=== PATIENT | male | born 1960 | race Two or more races ===

== ENCOUNTER 2017-01-13 08:49 | Emergency (ER) | payer BC, OTHER ==
[2017-01-13 09:00] VITALS: BP 158/90
--- NOTE | 2017-01-13 09:40 | EDM.PDOC ---
ED HPI GENERAL MEDICAL PROBLEM - General Chief Complaint: Back Pain or Injury Stated Complaint: BACK PAIN Time Seen by Provider: 01/13/17 09:01 Source of Information: Reports: Patient, RN Notes Reviewed History Limitations: Reports: No Limitations - History of Present Illness INITIAL COMMENTS - FREE TEXT/NARRATIVE: The patient states that he developed pain to the dorsal aspect of his right foot this past 01/09/2017. He was under the impression that it was a gout flare, although he has never been formally diagnosed with gout. He states that he has been constipated all week, which he associates with a gouty flare. He also developed left flank pain on 01/09/2017, stating that the pain has been worsening since then. He states that it is worse if he moves, but there is pain even if he remains still. He is unable to describe the character of the pain other than "pain". No urinary symptoms, such as dysuria, frequency, or gross hematuria. No prior similar symptoms. The patient denies a back injury. 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 He states that he does have to wash the truck once a week. The patient does not have a PCP, and states that he has never undergone a general physical examination. Left Back Pain Score (Numeric/FACES): 10 - Related Data Allergies Allergy/AdvReac Type Severity Reaction Status Date / Time No Known Allergies Allergy Verified 01/13/17 08:56 Home Meds: Home Meds Orphenadrine [Norflex] 1 tab PO Q12H #10 tab.er 01/13/17 [Rx] Past Medical History Endocrine/Metabolic History: Reports: Obesity/BMI 30+ - Past Surgical History HEENT Surgical History: Reports: Other (See Below) (Right ear surgery x 2) Social & Family History - Tobacco Use Smoking Status *Q: Former Smoker Years of Tobacco use: 29 Packs/Tins Daily: 1 Month Tobacco Last Used: Quit 2002 - Alcohol Use Alcohol Use History: Yes Date/Time of Last Drink Comment: Quit 2002 - Recreational Drug Use Recreational Drug Use: Yes Drug Use in Last 12 Months: No Recreational Drug Type: Reports: Barbituates, Cocaine, Marijuana/Hashish Recreational Drug Last Use: Quit 2002 - Living Situation & Occupation Living situation: Reports: , with Spouse, with Family (Stepdaughter and her 5 children) Occupation: Employed (trailer tank truck driver) ED ROS GENERAL - Review of Systems Review Of Systems: See Below Constitutional: Reports: No Symptoms HEENT: Reports: No Symptoms Respiratory: Reports: No Symptoms Cardiovascular: Reports: No Symptoms Endocrine: Reports: No Symptoms GI/Abdominal: Reports: No Symptoms : Reports: No Symptoms Musculoskeletal: Reports: No Symptoms Skin: Reports: No Symptoms Neurological: Reports: No Symptoms Psychiatric: Reports: No Symptoms Hematologic/Lymphatic: Reports: No Symptoms Immunologic: Reports: No Symptoms ED EXAM,LOWER BACK PAIN/INJURY - Physical Exam Exam: See Below Exam Limited By: No Limitations General Appearance: Alert, WD/WN, No Apparent Distress Eye Exam: Bilateral Eye: Normal Inspection Ears: Normal External Exam, Hearing Grossly Normal Nose: Normal Inspection, No Blood Throat/Mouth: Normal Inspection, Normal Lips, Normal Voice, No Airway Compromise Head: Atraumatic, Normocephalic Neck: Normal Inspection, Full Range of Motion Respiratory/Chest: No Respiratory Distress, Lungs Clear, Normal Breath Sounds, No Accessory Muscle Use Cardiovascular: Normal Peripheral Pulses, Regular Rate, Rhythm, No Gallop, No JVD, No Murmur, No Rub GI/Abdominal: Normal Bowel Sounds, Soft, Non-Tender, No Organomegaly, No Distention, No Abnormal Bruit, No Mass, Other (Obese) (Male) Exam: Deferred Rectal (Males) Exam: Deferred Back Exam: Normal Inspection, Full Range of Motion, Other (The patient is able to flex the spine to approximately 110, and extend the spine to approximately 30. He is able to tilt to both the left and right to approximately 30. He is able to twist the spine both left and right to approximately 30. Unilateral knee bend is normal bilaterally. Straight leg raise is negative to 90 bilaterally.). No: CVA Tenderness (L), CVA Tenderness (R), Decreased Range of Motion, Paraspinal Tenderness, Vertebral Tenderness Extremities: Normal Inspection, Normal Range of Motion, No Pedal Edema, Normal Capillary Refill Neurological: Alert, Normal Gait, No Motor/Sensory Deficits, Oriented x 3 Psychiatric: Normal Affect Skin Exam: Warm, Dry, Intact, Normal Color, No Rash Lymphatic: No Adenopathy Course - Vital Signs Last Recorded V/S: Last Vital Signs Temp 36.9 C 01/13/17 08:57 Pulse 88 01/13/17 08:57 Resp 18 01/13/17 08:57 BP 158/90 H 01/13/17 08:57 Pulse Ox 98 01/13/17 08:57 - Orders/Labs/Meds Labs: Laboratory Tests 01/13/17 Range/Units 09:36 Urine Color Yellow (Yellow) Urine Appearance Clear (Clear) Urine pH 5.5 (5.0-8.0) Ur Specific Posey 1.020 (1.005-1.030) Urine Protein Negative (Negative) Urine Glucose (UA) Negative (Negative) Urine Ketones Negative (Negative) Urine Occult Blood Negative (Negative) Urine Nitrite Negative (Negative) Urine Bilirubin Negative (Negative) Urine Urobilinogen 0.2 (0.2-1.0) Ur Leukocyte Esterase Negative (Negative) Urine RBC Not seen (0-5) /hpf Urine WBC Not seen (0-5) /hpf Ur Epithelial Cells 0-5 (0-5) /hpf Urine Bacteria Not seen (FEW) /hpf Urine Mucus Not seen (FEW) /hpf Meds: Medications Discontinued Medications Generic Name Dose Route Start Last Admin Trade Name Freq PRN Reason Stop Dose Admin Orphenadrine Citrate 100 mg 01/13/17 10:32 Norflex PO 01/13/17 10:33 ONETIME STA - Re-Assessments/Exams Free Text/Narrative Re-Assessment/Exam: 01/13/17 09:46 The patient has remarkable flexibility, and, clinically, there is no suggestion that the patient's symptoms are related to a spinal injury or herniated intervertebral disc. While he does not have CVA tenderness, I will check a urinalysis for blood or UTI. Presuming these are negative, I will treat for a muscle spasm with a muscle relaxant. 01/13/17 10:37 The patient's urinalysis is normal. His back pain is most likely due to a muscle spasm. I have ordered a first dose of Norflex, and will e-prescribe an additional 5 days. I will refer the patient to Dr. Lal for follow-up. Departure - Departure Time of Disposition: 10:37 Disposition: Home, Self-Care 01 Condition: Good Clinical Impression: Muscle spasm of back - Discharge Information Referrals: PCP,Not In Area [Primary Care Provider] - Vanessa Lal [Physician] - Forms: ED Department Discharge Additional Instructions: You were seen in the emergency room for left flank pain since Sunday, 2016. Workup in the ER included a urinalysis, which was normal. You do not have a urinary tract infection, and you do not have a kidney stone. Based on your examination, your back pain is MOST LIKELY due to a muscle spasm. You have been started on the muscle relaxant Norflex. Take one tablet every 12 hours, starting tonight, 01/13/2017, as prescribed. We STRONGLY recommend you follow-up with Dr. Lal in the clinic for a general physical examination. You would also follow-up with Dr. Lal if your back pain does not improve. If any other problems, please do not hesitate to return to the ER.
[2017-01-13] MEDS ORDERED: Orphenadrine 100 MG Tab.ER PO STA (10:32)
== END 2017-01-13 10:57 | disposition home or self-care (01) ==
LOC: JD.ED 08:49
DX: M62.830 Muscle spasm of back (principal); E66.9 Obesity, unspecified; Z87.891 Personal history of nicotine dependence
CPT/HCPCS: 81001; 99284; A9270; 99283

== ENCOUNTER 2017-01-14 07:30 | Emergency (ER) | payer BC, OTHER ==
[2017-01-14 07:49] VITALS: BP 145/88
[2017-01-14] MEDS ORDERED: Acetaminophen/oxyCODONE 325-5 MG Tab PO ONE (08:40)
[2017-01-14] MEDS ORDERED: Ibuprofen 800 MG Tab PO ONE (08:40)
--- NOTE | 2017-01-14 08:44 | EDM.PDOC ---
ED HPI GENERAL MEDICAL PROBLEM - General Chief Complaint: Back Pain or Injury Stated Complaint: BACK PAIN WORSE THAN YESTERDAY Time Seen by Provider: 01/14/17 08:39 Source of Information: Reports: Patient - History of Present Illness INITIAL COMMENTS - FREE TEXT/NARRATIVE: 56-year-old male presents to the ED with severe left mid back pain. 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 States due to the position and having to reach above his head and ENT or jerking tarp with his right hand only he felt a pulling sensation in his left mid back last Sunday, January 10. He had to do the same type of activity for the next 3 days. He states he felt mild pain in his back Sunday but worsened Sunday. He came into the ED yesterday and did receive some Norflex which he did not find helpful. He states he has a little pain if he doesn't move. He cannot take a deep breath. Certain movements just above dropped him to his knees because of the severity of the muscle spasm in his left back. Very painful to cough and to deep breathe at times. No previous back problems. Onset: Sudden Onset Date: 01/10/17 (Gradually has become worse over the last 4-5 days.) Duration: Day(s):, Getting Worse Location: Reports: Back (Left mid back.) Quality: Reports: Ache, Pressure, Sharp, Stabbing (With movement) Severity: Moderate (Describes pain as 8 or 9 with movement at rest it's down to 1 or 2.) Improves with: Reports: Rest Worsens with: Reports: Breathing (And not moving), Other (Coughing), Movement Context: Reports: Activity (It's the nature of what he had to do in the workplace in terms of manually pulling a type across the top of his load on his truck. The poles are bent for the hydraulic components of the vehicle to move the top over his load. He's had to mechanically pole it and had to indicate aggressively on Sunday with one hand i.e. right hand above his head. He believes this is when the problem started and it's gradually worsened. Of course she had to do the same activity for the rest of the week as a truck is not been repaired.), Other. Denies: Exercise, Lifting, Sick Contact, Trauma Associated Symptoms: Reports: No Other Symptoms Treatments BEHAVIORAL ASSISTANT: Reports: Acetaminophen, Other (see below) (Norflex which was prescribed yesterday.) Flank Pain Score (Numeric/FACES): 10 - Related Data Allergies Allergy/AdvReac Type Severity Reaction Status Date / Time No Known Allergies Allergy Verified 01/14/17 07:48 Home Meds: Home Meds Orphenadrine [Norflex] 1 tab PO Q12H #10 tab.er 01/13/17 [Rx] Diclofenac Sodium [Voltaren] 50 mg PO TIDMEALS #30 tab.ec 01/14/17 [Rx] oxyCODONE HCl/Acetaminophen [Percocet 5-325 mg Tablet] 1 - 2 each PO Q4H PRN # 20 tablet 01/14/17 [Rx] Past Medical History Cardiovascular History: Reports: Hypertension Endocrine/Metabolic History: Reports: Obesity/BMI 30+ - Past Surgical History HEENT Surgical History: Reports: Other (See Below) (Right ear surgery x 2) Social & Family History - Tobacco Use Smoking Status *Q: Unknown Ever Smoked Years of Tobacco use: 29 Packs/Tins Daily: 1 Month Tobacco Last Used: Quit 2002 - Recreational Drug Use Recreational Drug Use: Yes Drug Use in Last 12 Months: No Recreational Drug Type: Reports: Barbituates, Cocaine, Marijuana/Hashish Recreational Drug Last Use: Quit 2002 - Living Situation & Occupation Living situation: Reports: , with Spouse, with Family (Stepdaughter and her 5 children) Occupation: Employed ([employer] driver) ED ROS GENERAL - Review of Systems Review Of Systems: See Below Constitutional: Reports: Fatigue. Denies: Fever, Chills, Malaise, Weakness HEENT: Reports: No Symptoms (From not sleeping that well) Respiratory: Reports: Shortness of Breath. Denies: Wheezing, Pleuritic Chest Pain (Can't take a full deep breath because it aggravates the back pain), Cough , Sputum, Hemoptysis Cardiovascular: Reports: Blood Pressure Problem. Denies: Claudication, Dyspnea on Exertion, Edema, Lightheadedness, Orthopnea (Mild hypertension) Endocrine: Denies: No Symptoms GI/Abdominal: Reports: No Symptoms : Reports: No Symptoms Musculoskeletal: Reports: Back Pain (Left mid back pain from between his shoulder blade all the way down to), Muscle Pain ( lumbar spine area.) Skin: Reports: No Symptoms (left mid back ) Neurological: Reports: No Symptoms Psychiatric: Reports: No Symptoms Hematologic/Lymphatic: Reports: No Symptoms ED EXAM, UPPER BACK/NECK PAIN - Physical Exam Exam: See Below Exam Limited By: No Limitations General Appearance: Alert, WD/WN, Moderate Distress (Annual certain movements cause severe pain and muscle spasm left back.) Cardiovascular/Respiratory: Regular Rate, Rhythm, No M/R/G, Normal Peripheral Pulses, Normal Breath Sounds, No Respiratory Distress GI/Abdominal: Normal Bowel Sounds, Soft, Non-Tender, No Organomegaly (Mildly obese), No Distention, No Mass, Other Back Exam: Muscle Spasm (Patient exhibits marked paraspinal muscle spasm on the left side from thoracic 5 to lumbar one on the left side. Particular a maximal point of tenderness over the eighth ninth and 10th rib heads. Any movement causes severe pain. He can forward flex and extend okay but lateral rotation is moderately painful). No: Vertebral Tenderness Extremities: Normal Inspection, Normal Range of Motion, Non-Tender, No Pedal Edema, Normal Capillary Refill, Other Neurologic: No Motor/Sensory Deficits (No evidence of nerve root irritation), Alert, Normal Mood/Affect, Oriented x 3 Skin Exam: Normal Color, Warm/Dry Lymphatic: No Adenopathy Course - Vital Signs Last Recorded V/S: Last Vital Signs Temp 36.9 C 01/14/17 07:46 Pulse 88 01/14/17 07:46 Resp 18 01/14/17 07:46 BP 145/88 H 01/14/17 07:46 Pulse Ox 100 01/14/17 07:46 - Orders/Labs/Meds Orders: Active Orders 24 hr Category Date Time Status Thoracic Spine 2V [CR] Stat Exams 01/14/17 08:40 Taken Meds: Medications Discontinued Medications Generic Name Dose Route Start Last Admin Trade Name Indraq PRN Reason Stop Dose Admin Ibuprofen 800 mg 01/14/17 08:40 01/14/17 08:46 Motrin PO 01/14/17 08:41 800 mg ONETIME ONE Administration Oxycodone/Acetaminophen 2 tab 01/14/17 08:40 01/14/17 08:46 Percocet 325-5 Mg PO 01/14/17 08:41 2 tab ONETIME ONE Administration - Radiology Interpretation Free Text/Narrative:: 56-year-old male with a work-related injury to his left mid back that occurred on January 10. He had to do the same type of procedure in terms of pulling manually his top cover for the top of his semi-trailer due to the mechanical components being bent and broken. This involves yanking on the chart from below with right arm alone causing a tremendous toast force to his back. He has thus severe left paraspinal muscle spasm from for thoracic 56 level to lumbar 18 level on the left side. There is marked tenderness particularly over the rib heads at 8,9 and 10. Plan 2 view of the thoracic spine to be done i.e. AP and lateral. I will give him 2 Percocet 5/3/25 milligram tablets now for pain relief. - Re-Assessments/Exams Free Text/Narrative Re-Assessment/Exam: 01/14/17 09:13 AP and lateral of his thoracic spine is been completed. There does appear to be mild wedge compression fracture at thoracic 7. However this does not appear to be new. Plan will be conservative management with Voltaren 50 mg 3 times daily for 10 days to reduce pain and inflammation. Percocet tabs 5 /3/25 one or 2 every 4-6 hours for pain relief. Patient advised to seek chiropractic manipulation early this next week. Tomorrow will be a holiday however. Note given to excuse him from the work place for at least the rest of this week. He should follow-up with his personal care physician on Sunday next week to see if he is able to return to work. Departure - Departure Time of Disposition: :24 Disposition: Home, Self-Care 01 Condition: Fair Clinical Impression: Acute thoracic myofascial strain Qualifiers: Encounter type: initial encounter Qualified Code(s): S29.019A - Strain of muscle and tendon of unspecified wall of thorax, initial encounter - Discharge Information Prescriptions: Diclofenac Sodium [Voltaren] 50 mg PO TIDMEALS #30 tab.ec oxyCODONE HCl/Acetaminophen [Percocet 5-325 mg Tablet] 1 - 2 each PO Q4H PRN # 20 tablet PRN Reason: pain relief. Instructions: Thoracic Strain Referrals: PCP,Not In Area [Primary Care Provider] - Forms: ED Department Discharge, ED Return to Work/School Form Additional Instructions: Evaluation the emergency room today in regards to acute strain of the left mid back. This appears to be a work-related injury with aggressive stress twisting injury to the mid back last Sunday, January 10. I suspect there is underlying rib head partial dislocation which we call subluxation the cause the severe overlying muscle spasm. X-rays do not reveal any broken bones. Suggest treatment with anti-inflammatory Voltaren 50 mg 3 times daily for the next 10 days pain medication Percocet 5/325 one or 2 every 4-6 hours for pain relief as needed. Suggest heat pack to the area one half hour out of every 4 hours to reduce spasm . Suggest follow-up with a chiropractor on Sunday if able. Suggest trying Dr. Aram Herman are as he may have an opening Sunday. Deep tissue ultrasound followed by adjustment of rib heads might help get you back working a lot quicker. Note written to excuse excuse her from the work place for the remainder of the week tentative return to work next Sunday but if not markedly improved then follow-up with a doctor is necessary. - My Orders Last 24 Hours: My Active Orders 01/14/17 08:40 Thoracic Spine 2V [CR] Stat - Assessment/Plan Last 24 Hours: My Active Orders 01/14/17 08:40 Thoracic Spine 2V [CR] Stat
--- NOTE | 2017-01-15 18:00 | CR ---
Thoracic spine: AP, lateral and swimmer's views of the thoracic spine was obtained. Comparison: No previous study. Mild disc space narrowing is seen within portions of the lower cervical spine and upper thoracic spine. Minimal scattered endplate osteophytes are scattered throughout the thoracic spine. Vertebral body heights are fairly well-preserved. Mild scoliosis is noted. Pedicles are intact. No discrete fracture or subluxation is seen. Impression: 1. Slight degenerative change and scoliosis. 2. Nothing acute is seen. Diagnostic code #2
== END 2017-01-14 09:36 | disposition home or self-care (01) ==
LOC: JD.ED 07:30
DX: S29.012A Strain of muscle and tendon of back wall of thorax, initial encounter (principal); I10 Essential (primary) hypertension; E66.9 Obesity, unspecified; X50.9XXA Other and unspecified overexertion or strenuous movements or postures, initial encounter
CPT/HCPCS: 72070; 99283; A9270